=== PATIENT | male | born 1945 | race Caucasian/White ===

== ENCOUNTER 2017-12-26 00:10 | Observation (INO) ==
[2017-12-26] MEDS ORDERED: Sennosides/Docusate Sodium TABLET PO PRN (03:56)
[2017-12-26] MEDS ORDERED: traMADol 50 MG TABLET PO PRN (03:56)
--- NOTE | 2017-12-26 04:07 | Internal Med History&Physical ---
Date of Encounter: 12/26/17 Time of Encounter: 04:07 Internal Medicine - H&P: HPI Chief complaint: right arm tingling Admitted From: Home Plans for Post Hospital Care: Home History of present illness: Mr. Quinonez is a 72 year old man with a history of throat cancer s/p radical leck neck dissection in the 80s, CVA with left hemiplegia and right carotid artery stenosis s/p stenting, HTN, HLD who was admitted here 1 month ago on transfer from the [place] due to ventricular tachycardia. At the time he complained of dizziness that had been progressing over the preceding 2 months and he was found to have multiple runs of nonsustained V. tach and was started on amiodarone infusion as well as beta blockade. He was evaluated by cardiology with the recommendation of supplementing electrolytes adequately, continuing beta blockade and stopping amiodarone; a TTE was checked and a left heart catheter performed with 60% LAD stenosis and the rest of the vessels were free of obstructive disease. He presents now from [facility] emergency room where he presented with a complaint of right arm numbness that started 2 hours prior without associated chest pain, dyspnea, nausea, vomiting or diaphoresis. EKG initially showed bigeminy and subsequently he went into a period of nonsustained V. tach that occurred on multiple occasions. He remained clinically and hemodynamically stable and this time and is transferred here for further observation. My assessment the patient reports feeling well and has no complaints at this time stating that his right arm numbness menstrual while he was at rest and not related to exertion and is the first time this happens to him but has subsided without intervention. He denies any chest pain or shortness of breath at this time. He reports adherence to his medications. Past Med Surg Social Fam HX - Past Medical History Medical history: cancer, CVA, GERD, hyperlipidemia, hypertension, peripheral artery disease Additional medical history: L foot drop, diabetic neuropathy, luke's esophagus, dysphagia, erectile dysfunction, carcinoma of head/neck, carotid stenosis, gout Psychiatric history: no psych history - Past Surgical History Surgical History: vascular surgery Additional surgical history: radial neck sx for throat ca, R ankle - Social History Smoking Status: Former smoker Smokeless Tobacco Status: No Alcohol use: rarely Drug use: none - Family History Mother History Unknown: Yes Hx Family Endocrine Disorder: Yes (DM) Father History Unknown: Yes Hx Family Endocrine Disorder: Yes (Renal Failure) Internal Medicine - H&P: Meds Allopurinol [Zyloprim 100 MG] 100 mg PO DAILY 11/10/17 [History] Amlodipine Besylate 10 mg PO DAILY 11/10/17 [History] Aspirin [Lo-Dose Aspirin EC] 81 mg PO DAILY 11/10/17 [History] Atorvastatin [Lipitor] 40 mg PO HS 11/10/17 [History] Baclofen 40 mg PO TID PRN 11/10/17 [History] Benzonatate [Tessalon] 100 mg PO TID 11/10/17 [History] Clopidogrel [Plavix] 75 mg PO DAILY 11/10/17 [History] Lisinopril [Zestril] 40 mg PO DAILY 11/10/17 [History] Meclizine [Antivert] 12.5 mg PO BID PRN 11/10/17 [History] Metformin HCl 500 mg PO BID 11/10/17 [History] Multivit-Min/FA/Lycopen/Lutein [A Thru Z Select Multivit Tab] 1 tab PO DAILY [History] [place]-3/Dha/Epa/Fish Oil [Fish Oil 1,000 mg Softgel] 2 cap PO BID 11/10/17 [ History] Pantoprazole Sodium [Protonix] 20 mg PO DAILY 11/10/17 [History] Sennosides/Docusate Sodium [Colace 2-in-1 Tablet] 2 tab PO QID PRN 11/10/17 [ History] Sertraline [Zoloft] 100 mg PO DAILY 11/10/17 [History] Tamsulosin [Flomax] 0.4 mg PO DAILY 11/10/17 [History] Tramadol HCl [Ultram] 50 mg PO HS PRN 11/10/17 [History] Metoprolol XL (24 HR) Succ [Toprol Xl] 25 mg PO DAILY 30 Days #30 tab.er.24h [Rx] 3 Allergy/AdvReac Type Severity Reaction Status Date / Time No Known Allergies Allergy Verified 11/10/17 17:33 All Systems PM: A 10-system review of systems was performed and is negative for pertinent findings except as documented above in the HPI. - Constitutional Vitals: Temp Pulse Resp BP Pulse Ox 98.0 F 69 18 167/82 100 12/26/17 03:21 12/26/17 03:21 12/26/17 03:21 12/26/17 03:21 12/26/17 03:21 Exam: Vitals: Reviewed General: Well-appearing and not in acute distress Skin: Surgical incision site from neck dissection noted and well-healed. HEENT: Moist mucous membranes. No conjunctivae pallor. Neck: Excavated left neck area from surgery. Chest: Normal thoracic expansion. Normal breath sounds. Clear to auscultation. Heart: Normal s1/s2 Abdomen: Non-distended, soft and non-tender to palpation. Extremities: No clubbing, cyanosis or edema. Neurological: Awake, alert and oriented to person, place and time. Right hemiplegia. Psych: Affect appropriate. - Assessment and plan (1) Nonsustained ventricular tachycardia Current Visit: Yes Status: Acute Assessment and plan: Unclear etiology; could be related to ischemia or some ectopic focus of irregularity. I will continue metoprolol. For now since arrival no evidence of V. tach and clinically/hemodynamically stable and therefore will not start amiodarone however we will reconsult cardiology for evaluation of further management options. (2) Carotid stenosis, right Current Visit: Yes Status: Acute Assessment and plan: Currently asymptomatic. Continue dual antiplatelet therapy. (3) DVT prophylaxis Current Visit: Yes Status: Acute Assessment and plan: Subcutaneous heparin ordered. (4) HLD (hyperlipidemia) Current Visit: Yes Status: Chronic Assessment and plan: We will continue high dose statin therapy for ASCVD Qualifiers: Hyperlipidemia type: unspecified Qualified Code(s): E78.5 - Hyperlipidemia , unspecified (5) HTN (hypertension) Current Visit: Yes Status: Chronic Assessment and plan: Continue home antihypertensive therapy. Qualifiers: Hypertension type: essential hypertension Qualified Code(s): I10 - Essential (primary) hypertension (6) History of CVA (cerebrovascular accident) Current Visit: Yes Status: Chronic Assessment and plan: Stable and on antiplatelet/statin therapy. (7) History of throat cancer Current Visit: Yes Status: Resolved Assessment and plan: Resected in 1982 and no evidence of recurrence since then; was related to smoking history which he has now quit. - Time Spent With Patient Total time spent is greater than 50% in coordination of care (as documented) at patient's floor/unit and/or counseling patient: Greater than 35 minutes
[2017-12-26 05:21] LABS: Basophils % 0.5 %; Eosinophils # 0.2 K/mcL (0.0-0.6); Eosinophils % 3.3 %; Hematocrit 37.8 % (37.5-50.1); Hemoglobin 12.9 g/dL (12.9-16.9); Immature Granulocytes % 0.5 % (0-4); Lymphocytes % 14.7 %; Mean Corpuscular HGB Conc 34.1 g/dL (31.6-35.5); Mean Corpuscular Hemoglobin 28.6 pg (28.0-33.3); Mean Corpuscular Volume 83.8 fL (83.0-100.0); Mean Platelet Volume 9.9 fL (9.4-12.4); Monocytes # 0.4 K/mcL (0.0-1.3); Monocytes % 6.2 %; Platelet Count 154 K/mcL (140-400); Red Blood Count 4.51 M/mcL (4.19-5.50); Red Cell Distribution Width 14.2 % (11.5-14.5); Segmented Neutrophils % 74.8 %
[2017-12-26 05:43] LABS: Alanine Aminotransferase 14 Units/L (7-52); Albumin 4.1 g/dL (3.5-5.7); Albumin/Globulin Ratio 1.5 (1.1-2.2); Alkaline Phosphatase 48 Units/L (34-104); Aspartate Amino Transferase 13 Units/L (13-39); BUN/Creatinine Ratio 28 (6-26); Bilirubin,Direct 0.1 mg/dL (0.0-0.2); Bilirubin,Indirect 0.7 mg/dL (0.0-1.2); Bilirubin,Total 0.8 mg/dL (0.3-1.0); Blood Urea Nitrogen 18 mg/dL (8-23); Calcium 9.6 mg/dL (8.6-10.3); Carbon Dioxide 27 mEq/L (23-29); Chloride 101 mEq/L (98-107); Globulin 2.7 g/dL (2.4-3.5); Glucose 161 mg/dL (70-105); Magnesium 1.7 mg/dL (1.6-2.6); Osmolality,Calculated 289 (280-300); Potassium 3.9 mEq/L (3.5-5.1); Sodium 137 mEq/L (136-145); Total Protein 6.8 g/dL (6.4-8.9); eGFR For Non-African Americans > 60 (> 60)
[2017-12-26 05:56] LABS: Thyroid Stimulating Hormone 2.279 mcIU/mL (0.340-5.600)
[2017-12-26] MEDS ORDERED: Metoprolol XL (24 HR) Succ 25 MG TAB.ER.24H PO SCH (09:00)
[2017-12-26] MEDS: Lisinopril 20 MG TABLET PO SCH (09:14)
[2017-12-26] MEDS: Aspirin Enteric Coated 81 MG Tablet PO SCH (09:14)
[2017-12-26] MEDS: amLODIPine 5 MG TABLET PO SCH (09:14)
[2017-12-26] MEDS: *HR* Heparin 5,000 UNIT/ML VIAL SQ SCH ×3 (09:15→20:54)
--- NOTE | 2017-12-26 11:15 | Cardiology Consult Note ---
Date of Encounter: 12/26/17 Time of Encounter: 11:13 Assessment and Plan (1) CAD in [place] artery Current Visit: Yes Status: Acute [place] CAD, moderate LAD stenosis. Recommend continue aspirin, statin, and beta andres therapy. Also on Plavix, which was presumably started for history of carotid stenting. No changes made to medical therapy today. (2) Nonsustained ventricular tachycardia Current Visit: Yes Status: Acute History of nonsustained ventricular tachycardia per previous records. Patient transferred for concern regarding ventricular bigeminy. Since admission, isolated PVCs noted. No VT observed. Recent LHC performed, which demonstrated nonobstructive CAD. LV EF is preserved. Recommend continue telemetry. Maintain magnesium greater than 2, potassium greater than 4. Continue beta andres therapy. Will increase to twice daily. We will reevaluate in a.m. Discussion w patient/family: The assessment and plan as outlined above was discussed with the patient and/or family members who expressed understanding and agreement. All questions were answered. Thank you for involving us in the care of your patient. Please call with any questions. History of Present Illness Consult date: 12/26/17 Requesting physician: Shilpa Tapia Consult reason: PAF Chief complaint: Right arm numbness History of present illness: Mr. Quinonez is a 72 year old male with a history of head and neck cancer status post radical left neck dissection in the 80s, CVA with left hemiparesis due to right carotid artery stenosis status post stenting, hypertension, and hyperlipidemia. Previously evaluated regarding arrhythmias, specifically VT. Last admission, LHC performed, which demonstrated moderate CAD and medical therapy was recommended. Amiodarone previously stopped and beta andres continued. Yesterday, went outside ER with concerns regarding right-sided arm numbness. Today, consultation requested regarding abnormal ECG, which reportedly demonstrated ventricular bigeminy. ECG could not be found on floor. Patient in sinus rhythm during my evaluation. He denied chest pain or discomfort, but apparently reported chest discomfort prior to his ER visit yesterday. Previous testing: TTE 11/11/2017: LVEF 60%. Normal RV size and function. Mild diastolic dysfunction. Mild MR. No pulmonary hypertension LHC 11/10/2017: Left main normal. LAD mid 60% stenosis, FFR 0.85 and 0.87. Circumflex, OM1, L PDA normal. RCA normal. Past Med Surg Social Fam HX - Past Medical History Medical history: cancer, CVA, GERD, hyperlipidemia, hypertension, peripheral artery disease Additional medical history: L foot drop, diabetic neuropathy, luke's esophagus, dysphagia, erectile dysfunction, carcinoma of head/neck, carotid stenosis, gout Psychiatric history: no psych history - Past Surgical History Surgical History: vascular surgery Additional surgical history: radial neck sx for throat ca, R ankle - Social History Smoking Status: Former smoker Smokeless Tobacco Status: No Alcohol use: rarely Drug use: none - Family History Mother History Unknown: Yes Hx Family Endocrine Disorder: Yes (DM) Father History Unknown: Yes Hx Family Endocrine Disorder: Yes (Renal Failure) Medications and Allergies Allopurinol [Zyloprim 100 MG] 100 mg PO DAILY 11/10/17 [History] Amlodipine Besylate 10 mg PO DAILY 11/10/17 [History] Aspirin [Lo-Dose Aspirin EC] 81 mg PO DAILY 11/10/17 [History] Atorvastatin [Lipitor] 40 mg PO HS 11/10/17 [History] Baclofen 40 mg PO TID PRN 11/10/17 [History] Benzonatate [Tessalon] 100 mg PO TID 11/10/17 [History] Clopidogrel [Plavix] 75 mg PO DAILY 11/10/17 [History] Lisinopril [Zestril] 40 mg PO DAILY 11/10/17 [History] Meclizine [Antivert] 12.5 mg PO BID PRN 11/10/17 [History] Metformin HCl 500 mg PO BID 11/10/17 [History] Multivit-Min/FA/Lycopen/Lutein [A Thru Z Select Multivit Tab] 1 tab PO DAILY [History] [place]-3/Dha/Epa/Fish Oil [Fish Oil 1,000 mg Softgel] 2 cap PO BID 11/10/17 [ History] Pantoprazole Sodium [Protonix] 20 mg PO DAILY 11/10/17 [History] Sennosides/Docusate Sodium [Colace 2-in-1 Tablet] 2 tab PO QID PRN 11/10/17 [ History] Sertraline [Zoloft] 100 mg PO DAILY 11/10/17 [History] Tamsulosin [Flomax] 0.4 mg PO DAILY 11/10/17 [History] Tramadol HCl [Ultram] 50 mg PO HS PRN 11/10/17 [History] Metoprolol XL (24 HR) Succ [Toprol Xl] 25 mg PO DAILY 30 Days #30 tab.er.24h [Rx] 3 Allergy/AdvReac Type Severity Reaction Status Date / Time No Known Allergies Allergy Verified 11/10/17 17:33 All Systems Review: The remainder of the systems were reviewed and are negative - Cardiovascular Cardiovascular: as per HPI Physical Examination General: Conversant, No Apparent Distress HEENT: Atraumatic, Normocephaly, Mucus Membranes Moist Neck: No JVD, Normal carotid pulses Cardiac: Other (Regular. No auscultated murmurs gallops or rubs.) Lungs: Normal Breath Sounds, No Wheeze, Rales, Rhonchi Neuro: Alert and responsive, Other (Left-sided hemiparesis noted.) Abdomen: Soft Skin: No rashes noted on visualized skin Musculoskeletal: No Chest Wall Tenderness Extremities: No Clubbing, No Cyanosis, No Edema Results 12/26/17 04:40 12/26/17 04:40 Lab Results 12/26/17 12/26/17 12/26/17 04:40 04:40 04:40 WBC 6.6 Hgb 12.9 Hct 37.8 Plt Count 154 Sodium 137 Potassium 3.9 Chloride 101 Carbon Dioxide 27 BUN 18 Creatinine 0.64 L Glucose 161 H Calcium 9.6 Magnesium 1.7 Total Bilirubin 0.8 AST 13 ALT 14 Alkaline Phosphatase 48 Troponin I < 0.03 TSH 2.279 - Imaging and Cardiology Echo: report reviewed Cardiac cath: report reviewed Consult Discharge Plan - Plan [facility]errals: [facility] [[facility] Care Provider[facility] - Opal Benavides [Family Provider] -
[2017-12-26] MEDS: Baclofen 10 MG TABLET PO PRN (14:17)
--- NOTE | 2017-12-26 15:12 | Event Note ---
Date of Encounter: 12/26/17 Time of Encounter: 15:10 Mr. Quinonez is a 72 year old man with a history of throat cancer s/p radical leck neck dissection in the 80s, CVA with left hemiplegia and right carotid artery stenosis s/p stenting, HTN, HLD who was admitted here 1 month ago on transfer from the [place] due to ventricular tachycardia. At the time he complained of dizziness that had been progressing over the preceding 2 months and he was found to have multiple runs of nonsustained V. tach and was started on amiodarone infusion as well as beta blockade. He was evaluated by cardiology with the recommendation of supplementing electrolytes adequately, continuing beta blockade and stopping amiodarone; a TTE was checked and a left heart catheter performed with 60% LAD stenosis and the rest of the vessels were free of obstructive disease. He presents now from [facility] emergency room where he presented with a complaint of right arm numbness that started 2 hours prior without associated chest pain, dyspnea, nausea, vomiting or diaphoresis. EKG initially showed bigeminy and subsequently he went into a period of nonsustained V. tach that occurred on multiple occasions. He remained clinically and hemodynamically stable and this time and is transferred here for further observation. My assessment the patient reports feeling well and has no complaints at this time stating that his right arm numbness menstrual while he was at rest and not related to exertion and is the first time this happens to him but has subsided without intervention. He denies any chest pain or shortness of breath at this time. He reports adherence to his medications patient was admitted for NSVT and chest pain, but patient denies chest pain, he said he never had chset pain. Riht arm numbness is gone, denies papitation. Appreciate cardiology help increased BB dose continue ASA, statin BB plavix
[2017-12-26] MEDS: Metoprolol XL (24 HR) Succ 25 MG TAB.ER.24H PO SCH (20:54)
[2017-12-27 04:28] LABS: BUN/Creatinine Ratio 29 (6-26); Blood Urea Nitrogen 18 mg/dL (8-23); Calcium 9.5 mg/dL (8.6-10.3); Carbon Dioxide 28 mEq/L (23-29); Chloride 101 mEq/L (98-107); Glucose 128 mg/dL (70-105); Osmolality,Calculated 288 (280-300); Potassium 4.1 mEq/L (3.5-5.1); Sodium 137 mEq/L (136-145); eGFR For Non-African Americans > 60 (> 60)
[2017-12-27] MEDS: *HR* Heparin 5,000 UNIT/ML VIAL SQ SCH (05:27)
[2017-12-27 06:51] VITALS: BP 135/75
[2017-12-27] MEDS: Baclofen 10 MG TABLET PO PRN (09:57)
[2017-12-27] MEDS: Metoprolol XL (24 HR) Succ 25 MG TAB.ER.24H PO SCH (09:57)
[2017-12-27] MEDS: Lisinopril 20 MG TABLET PO SCH (09:58)
[2017-12-27] MEDS: amLODIPine 5 MG TABLET PO SCH (09:58)
[2017-12-27] MEDS: Aspirin Enteric Coated 81 MG Tablet PO SCH (09:59)
--- NOTE | 2017-12-27 10:55 | Cardiology Progress Note ---
Date of Encounter: 12/27/17 Time of Encounter: 10:53 Assessment and Plan (1) CAD in [place] artery Current Visit: Yes Status: Acute [place] CAD, moderate LAD stenosis. Recommend continue aspirin, statin, and beta andres therapy. Also on Plavix, which was presumably started for history of carotid stenting. No changes made to medical therapy today. (2) Nonsustained ventricular tachycardia Current Visit: Yes Status: Acute History of nonsustained ventricular tachycardia per previous records. Patient transferred for concern regarding ventricular bigeminy. Infrequent PVCs noted since admission. No indication for further testing at this time. Recommend continue current medical therapy, including low-dose beta andres twice daily. 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 Cardiology will sign off. Please call with any questions or concerns. Discussion w patient/family: The assessment and plan as outlined above was discussed with the patient and/or family members who expressed understanding and agreement. All questions were answered. Thank you for involving us in the care of your patient. Please call with any questions. Subjective Principal diagnosis: Right arm weakness Interval history: Overall, patient reports he is feeling better. No further right arm weakness. No palpitations reported. Telemetry reviewed, occasional PVCs noted. No sustained arrhythmias. Objective General: Conversant, No Apparent Distress HEENT: Atraumatic, Normocephaly, Mucus Membranes Moist Neck: No JVD, Normal carotid pulses Cardiac: Reg Rate and Rhythm, Normal S1 and S2, No Murmur Lungs: Normal Breath Sounds, No Wheeze, Rales, Rhonchi Neuro: Alert and responsive, Other (Left-sided paralysis noted) Abdomen: Soft, Non-Tender Skin: No rashes noted on visualized skin Musculoskeletal: No Chest Wall Tenderness Extremities: No Clubbing, No Cyanosis, No Edema Results 12/26/17 04:40 12/27/17 03:19 Lab Results 12/27/17 03:19 Sodium 137 Potassium 4.1 Chloride 101 Carbon Dioxide 28 BUN 18 Creatinine 0.62 L Glucose 128 H Calcium 9.5 Magnesium 2.0 - Imaging and Cardiology Echo: report reviewed Cardiac cath: report reviewed Consult Discharge Plan - Plan Referrals: [place],PCP [Primary Care Provider] - Opal Benavides [Family Provider] -
--- NOTE | 2017-12-27 11:25 | Discharge Summary ---
Orders not resulted at time of discharge: Pending orders 12/26/17 03:25 EKG [ECG 12 lead ECG] [ECG] Routine 12/27/17 06:00 ECG 12 lead ECG [ECG] AM 0600 Date of Encounter: 12/27/17 Time of Encounter: 11:18 - Discharge Diagnosis (1) Nonsustained ventricular tachycardia Priority: Primary Status: Resolved (2) History of CVA (cerebrovascular accident) Priority: Secondary Status: Chronic (3) DVT prophylaxis Priority: Primary Status: Acute (4) History of throat cancer Priority: Secondary Status: Resolved (5) HTN (hypertension) Priority: Secondary Status: Chronic Qualifiers: Hypertension type: essential hypertension Qualified Code(s): I10 - Essential (primary) hypertension (6) HLD (hyperlipidemia) Priority: Secondary Status: Chronic Qualifiers: Hyperlipidemia type: unspecified Qualified Code(s): E78.5 - Hyperlipidemia , unspecified (7) Diabetes mellitus type 2 in nonobese Priority: Secondary Status: Chronic (8) Carotid stenosis, right Priority: Secondary Status: Chronic (9) CAD in [place] artery Priority: Secondary Status: Chronic Hospital course: Mr. Quinonez is a 72 year old male Mr. Quinonez is a 72 year old man with a history of throat cancer s/p radical leck neck dissection in the 80s, CVA with left hemiplegia and right carotid artery stenosis s/p stenting, HTN, HLD who was admitted here 1 month ago on transfer from the [place] due to ventricular tachycardia. At the time he complained of dizziness that had been progressing over the preceding 2 months and he was found to have multiple runs of nonsustained V. tach and was started on amiodarone infusion as well as beta blockade. He was evaluated by cardiology with the recommendation of supplementing electrolytes adequately, continuing beta blockade and stopping amiodarone; a TTE was checked and a left heart catheter performed with 60% LAD stenosis and the rest of the vessels were free of obstructive disease. He presents now from [facility] emergency room where he presented with a complaint of right arm numbness that started 2 hours prior without associated chest pain, dyspnea, nausea, vomiting or diaphoresis. EKG initially showed bigeminy and subsequently he went into a period of nonsustained V. tach that occurred on multiple occasions. He remained clinically and hemodynamically stable and this time and is transferred here for further observation. My assessment the patient reports feeling well and has no complaints at this time stating that his right arm numbness while he was at rest and not related to exertion and is the first time this happens to him but has subsided without intervention, lasted for 2 min. He denies any chest pain or shortness of breath at this time. He reports adherence to his medications patient was admitted for NSVT and chest pain, but patient denies chest pain, he said he never had chset pain. Right arm numbness is gone, denies papitation. Appreciate cardiology help increased BB dose. Cardiology is ok to discharge on metoprolol 25 mg XL BID, HR is well controlled. no recurrent NSVT. Patient had transient right arm numbness, lasted for 2 min, no recurrent episodes, he has hx of stroke, carotid stent, he follows up with [facility] vascular surgery, was told stent patent in 07/2017, he is already on ASA, Plavix. further work up wounld not change the management. Patient is instructed to follow up PCP. continue ASA, statin BB plavix Discharge discussed with: patient Time spent discussing smoking cessation with patient: 3 to 10 minutes - Time Spent with Patient Total time spent providing and/or coordinating discharge services: Less than 30 minutes - Discharge Medications Prescriptions: Metoprolol XL (24 HR) Succ [Toprol Xl] 25 mg PO BID 30 Days #60 tab.er.24h Home Medications: Allopurinol [Zyloprim 100 MG] 100 mg PO DAILY 11/10/17 [History] Aspirin [Lo-Dose Aspirin EC] 81 mg PO DAILY 11/10/17 [History] Atorvastatin [Lipitor] 40 mg PO HS 11/10/17 [History] Baclofen 40 mg PO TID PRN 11/10/17 [History] Benzonatate [Tessalon] 100 mg PO TID 11/10/17 [History] Clopidogrel [Plavix] 75 mg PO DAILY 11/10/17 [History] Meclizine [Antivert] 12.5 mg PO BID PRN 11/10/17 [History] Multivit-Min/FA/Lycopen/Lutein [A Thru Z Select Multivit Tab] 1 tab PO DAILY [History] [place]-3/Dha/Epa/Fish Oil [Fish Oil 1,000 mg Softgel] 2 cap PO BID 11/10/17 [ History] Sennosides/Docusate Sodium [Colace 2-in-1 Tablet] 2 tab PO QID PRN 11/10/17 [ History] Sertraline [Zoloft] 100 mg PO DAILY 11/10/17 [History] Tamsulosin [Flomax] 0.4 mg PO HS 11/10/17 [History] Tramadol HCl [Ultram] 50 mg PO HS PRN 11/10/17 [History] Acetaminophen [Tylenol] 650 mg PO Q6HR PRN 12/26/17 [History] Finasteride [Proscar] 5 mg PO DAILY 12/26/17 [History] Ketoconazole Shampoo [Nizoral Shampoo] 1 appl TP DAILY PRN 12/26/17 [History] Lactose-Reduced Food [Ensure Liquid] 1 bottle PO DAILY 12/26/17 [History] Lisinopril [Zestril] 10 mg PO DAILY 12/26/17 [History] Metformin HCl [Glucophage] 500 mg PO BID 12/26/17 [History] Pantoprazole Sodium [Protonix] 40 mg PO DAILY 12/26/17 [History] Metoprolol XL (24 HR) Succ [Toprol Xl] 25 mg PO BID 30 Days #60 tab.er.24h 12/27 [Rx] Allergies/Adverse Reactions: 3 Allergy/AdvReac Type Severity Reaction Status Date / Time No Known Allergies Allergy Verified 12/26/17 14:06 Date of admission: 12/26/17 02:33 Primary care physician: PCP [place] Consults: 12/26/17 04:02 Consult to Cardiology [CONS] Routine Comment: Consulting Provider: Cardiology Madeline Reason for Consult: Patient known to cardiology. HEre 1 month ago with NSVT and underwent LHC. Amiodarone was stopped and beta andres continued. Comes in now right right arm paresthesias and NSVT episodes. Call Completed: No Anticipated date of discharge: 12/27/17 - Constitutional Vitals: Temp Pulse Resp BP Pulse Ox 98.4 F 61 15 135/75 97 12/27/17 06:51 12/27/17 06:51 12/27/17 06:51 12/27/17 06:51 12/27/17 06:51 Exam: Vitals: Reviewed General: Well-appearing and not in acute distress Skin: Surgical incision site from neck dissection noted and well-healed. HEENT: Moist mucous membranes. No conjunctivae pallor. Neck: Excavated left neck area from surgery. Chest: Normal thoracic expansion. Normal breath sounds. Clear to auscultation. Heart: Normal s1/s2 Abdomen: Non-distended, soft and non-tender to palpation. Extremities: No clubbing, cyanosis or edema. Neurological: Awake, alert and oriented to person, place and time. left hemiplegia. Psych: Affect appropriate. - Patient Status Disposition: Home Health Service Condition: Good Overall status at discharge: patient is back to baseline - Discharge Instructions Follow Up With: [facility] [[facility] Care Provider[facility] - Opal Benavides [Family Provider] - - Diet and Activity Diet: advance to your usual diet
--- NOTE | 2017-12-27 11:45 | Physician Discharge Referral ---
Home Health/Hosp Referral Info Provider in Charge Post Discharge: PCP - Diagnosis (1) Nonsustained ventricular tachycardia Status: Resolved (2) History of CVA (cerebrovascular accident) Status: Chronic (3) DVT prophylaxis Status: Acute (4) History of throat cancer Status: Resolved (5) HTN (hypertension) Status: Chronic (6) HLD (hyperlipidemia) Status: Chronic (7) Diabetes mellitus type 2 in nonobese Status: Chronic (8) Carotid stenosis, right Status: Chronic (9) CAD in [place] artery Status: Chronic - Respiratory Orders Smoking Cessation: Smoking cessation has been advised. For more information, call the [place] Tobacco Quit Line at 1-768-CNQX-NOW. - Activity Activity Orders: Up ad mikel - Services Needed Following services are medically necessary services: Nursing, Home Health Aide - Transfer Medications Prescriptions: Metoprolol XL (24 HR) Succ [Toprol Xl] 25 mg PO BID 30 Days #60 tab.er.24h Home Medications: Allopurinol [Zyloprim 100 MG] 100 mg PO DAILY 11/10/17 [History] Aspirin [Lo-Dose Aspirin EC] 81 mg PO DAILY 11/10/17 [History] Atorvastatin [Lipitor] 40 mg PO HS 11/10/17 [History] Baclofen 40 mg PO TID PRN 11/10/17 [History] Benzonatate [Tessalon] 100 mg PO TID 11/10/17 [History] Clopidogrel [Plavix] 75 mg PO DAILY 11/10/17 [History] Meclizine [Antivert] 12.5 mg PO BID PRN 11/10/17 [History] Multivit-Min/FA/Lycopen/Lutein [A Thru Z Select Multivit Tab] 1 tab PO DAILY [History] [place]-3/Dha/Epa/Fish Oil [Fish Oil 1,000 mg Softgel] 2 cap PO BID 11/10/17 [ History] Sennosides/Docusate Sodium [Colace 2-in-1 Tablet] 2 tab PO QID PRN 11/10/17 [ History] Sertraline [Zoloft] 100 mg PO DAILY 11/10/17 [History] Tamsulosin [Flomax] 0.4 mg PO HS 11/10/17 [History] Tramadol HCl [Ultram] 50 mg PO HS PRN 11/10/17 [History] Acetaminophen [Tylenol] 650 mg PO Q6HR PRN 12/26/17 [History] Finasteride [Proscar] 5 mg PO DAILY 12/26/17 [History] Ketoconazole Shampoo [Nizoral Shampoo] 1 appl TP DAILY PRN 12/26/17 [History] Lactose-Reduced Food [Ensure Liquid] 1 bottle PO DAILY 12/26/17 [History] Lisinopril [Zestril] 10 mg PO DAILY 12/26/17 [History] Metformin HCl [Glucophage] 500 mg PO BID 12/26/17 [History] Pantoprazole Sodium [Protonix] 40 mg PO DAILY 12/26/17 [History] Metoprolol XL (24 HR) Succ [Toprol Xl] 25 mg PO BID 30 Days #60 tab.er.24h 12/27 [Rx] Allergies/Adverse Reactions: 3 Allergy/AdvReac Type Severity Reaction Status Date / Time No Known Allergies Allergy Verified 12/26/17 14:06 Certification: Further, I certify that my clinical findings support that this patient is homebound (i.e. absences from home require considerable and taxing effort and are for medical reasons or cheondoism services or infrequently or short duration when for other reasons) because: Homebound Reason: Patient requires assistance of a person or device to safely leave home Attestation: My signature below is to certify that this patient is under my care and that I, or nurse practitioner, or a physician's front desk assistant working with me, has a face-to -face encounter with this patient.
--- NOTE | 2017-12-29 21:24 | Electrocardiograph Report ---
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
== END 2017-12-27 13:38 | disposition home health service (06) ==
LOC: 2NENU → SUATTDRO 02:33
PROVIDERS: ADMIT Internal Medicine; ATTEND Hospitalist

== ENCOUNTER 2018-09-30 16:08 | Observation (INO) ==
[2018-09-30] MEDS ORDERED: Ondansetron 4 MG/2 ML VIAL IVP PRN (19:54)
[2018-09-30] MEDS ORDERED: Acetaminophen 325 MG TABLET PO PRN (19:54)
[2018-09-30] MEDS ORDERED: Ringers Solution, Lactated 1,000 ML IVC SCH (20:00)
[2018-09-30] MEDS ORDERED: Famotidine 20 MG/2 ML VIAL IVP ONE (20:16)
--- NOTE | 2018-09-30 20:23 | Internal Med History&Physical ---
Date of Encounter: 09/30/18 Time of Encounter: 20:22 Internal Medicine - H&P: HPI Chief complaint: weakness Admitted From: Home Plans for Post Hospital Care: Home History of present illness: Hector Quinonez is a 73 year old man with a history of throat cancer s/p radical left neck dissection in the 80s, CVA with left hemiplegia, right carotid artery stenosis s/p stenting, HTN and HLD. He is transferred here from an outside with the concern of stroke-like symptoms. The transfer call was received by my predecessor. He tells me that yesterday he became queasy to his stomach and has felt nauseated with some vomiting episodes. He also had abdominal discomfort from ongoing constipation but then later had loose bowel movements. He says this morning his felt he was somewhat disoriented and weak appearing so took him to the hospital for evaluation. He denies any complaints however and feels well at this time. He says he has not eaten anything today and will like to try some food. He denies headache, chest pain, shortness of breath, dizziness and lightheadedness at this time. Vitals: Reviewed General: Well-appearing and not in acute distress Skin: Surgical incision site from neck dissection noted and well-healed. HEENT: Moist mucous membranes. No conjunctivae pallor. Neck: Excavated left neck area from surgery. Chest: Normal thoracic expansion. Normal breath sounds. Clear to auscultation. Heart: Normal s1/s2 Abdomen: Non-distended, soft and non-tender to palpation. Extremities: No clubbing, cyanosis or edema. Neurological: Awake, alert and oriented to person, place and time. Left hem iplegia with contracture. Right side with 5/5 strength. Psych: Affect appropriate. Assessment/Plan 1. Nausea: Non-specific. Will [provide anti-emetics as needed. 2. Diarrhea: After a long bout of constipation. Not been on antibiotics recently. Will monitor and assess it if it recurs. 3. Weakness: Suspect secondary to poor intake from her stomach upset. No clinical evidence of new stroke is present on my assessment. Will provide IVF for resuscitation. 4. Right carotid stenosis: Asymptomatic. Continue DAPT. 5. Hyperlipidemia: On statin therapy. 6. Hypertension: We will resume home antihypertensive therapy once confirmed. 7. CVA: Stable and on antiplatelet/statin therapy. 8. Throat cancer: Resected in 1982 and no evidence of recurrence since then. It was related to smoking history which she has not quit. Past Med Surg Social Fam HX - Past Medical History Medical history: cancer, CVA, GERD, hyperlipidemia, hypertension, peripheral artery disease Additional medical history: L foot drop, diabetic neuropathy, luke's esophagus, dysphagia, erectile dysfunction, carcinoma of head/neck, carotid stenosis, gout Psychiatric history: no psych history - Past Surgical History Surgical History: vascular surgery Additional surgical history: radial neck sx for throat ca, R ankle - Social History Smoking Status: Former smoker Smokeless Tobacco Status: No Alcohol use: rarely Drug use: none - Family History Mother Living Status: Age at : 75 Cause of : DM Hx Family Endocrine Disorder: Yes (DM) Father Living Status: Age at : 50 Cause of : kidney failure Hx Family Cardiac Disorders: Yes Hx Family Endocrine Disorder: Yes (Renal Failure) Internal Medicine - H&P: Meds Allopurinol [Zyloprim 100 MG] 100 mg PO DAILY 11/10/17 [History] Aspirin [Lo-Dose Aspirin EC] 81 mg PO DAILY 11/10/17 [History] Atorvastatin [Lipitor] 40 mg PO HS 11/10/17 [History] Baclofen 40 mg PO TID PRN 11/10/17 [History] Benzonatate [Tessalon] 100 mg PO TID 11/10/17 [History] Clopidogrel [Plavix] 75 mg PO DAILY 11/10/17 [History] Meclizine [Antivert] 12.5 mg PO BID PRN 11/10/17 [History] Multivit-Min/FA/Lycopen/Lutein [A Thru Z Select Multivit Tab] 1 tab PO DAILY 11/10/17 [History] [place]-3/Dha/Epa/Fish Oil [Fish Oil 1,000 mg Softgel] 2 cap PO BID 11/10/17 [History] Sennosides/Docusate Sodium [Colace 2-in-1 Tablet] 2 tab PO QID PRN 11/10/17 [History] Sertraline [Zoloft] 100 mg PO DAILY 11/10/17 [History] Tamsulosin [Flomax] 0.4 mg PO HS 11/10/17 [History] Tramadol HCl [Ultram] 50 mg PO HS PRN 11/10/17 [History] Acetaminophen [Tylenol] 650 mg PO Q6HR PRN 12/26/17 [History] Finasteride [Proscar] 5 mg PO DAILY 12/26/17 [History] Ketoconazole Shampoo [Nizoral Shampoo] 1 appl TP DAILY PRN 12/26/17 [History] Lactose-Reduced Food [Ensure Liquid] 1 bottle PO DAILY 12/26/17 [History] Lisinopril [Zestril] 10 mg PO DAILY 12/26/17 [History] Metformin HCl [Glucophage] 500 mg PO BID 12/26/17 [History] Pantoprazole Sodium [Protonix] 40 mg PO DAILY 12/26/17 [History] Metoprolol XL (24 HR) Succ [Toprol Xl] 25 mg PO BID 30 Days #60 tab.er.24h 12/27 [Rx] Allergy/AdvReac Type Severity Reaction Status Date / Time No Known Allergies Allergy Verified 12/26/17 14:06 All Systems PM: A 10-system review of systems was performed and is negative for pertinent findings except as documented above in the HPI. - Constitutional Vitals: Temp Pulse Resp BP Pulse Ox 98.4 F 66 16 187/90 96 09/30/18 19:05 09/30/18 19:05 09/30/18 19:05 09/30/18 19:05 09/30/18 19:05 Exam: . - Time Spent With Patient Total time spent is greater than 50% in coordination of care (as documented) at patient's floor/unit and/or counseling patient: Greater than 35 minutes
[2018-09-30] MEDS ORDERED: traMADol 50 MG TABLET PO PRN (22:03)
[2018-10-01 03:26] LABS: Basophils # 0.1 K/mcL (0.0-0.2); Basophils % 0.7 %; Eosinophils # 0.3 K/mcL (0.0-0.6); Eosinophils % 4.5 %; Hematocrit 36.5 % (37.5-50.1); Hemoglobin 12.4 g/dL (12.9-16.9); INR 1.1; Immature Granulocytes % 0.3 % (0-4); Lymphocytes # 1.5 K/mcL (0.6-4.6); Mean Corpuscular Hemoglobin 29.2 pg (28.0-33.3); Mean Corpuscular Volume 85.9 fL (83.0-100.0); Mean Platelet Volume 9.5 fL (9.4-12.4); Monocytes # 0.6 K/mcL (0.0-1.3); Monocytes % 8.7 %; Neutrophils # 4.5 K/mcL (1.6-8.9); Platelet Count 158 K/mcL (140-400); Red Blood Count 4.25 M/mcL (4.19-5.50); Red Cell Distribution Width 13.6 % (11.5-14.5); Segmented Neutrophils % 64.8 %; White Blood Count 6.9 K/mcL (4.3-11.1)
[2018-10-01 03:29] LABS: Activated Partial Thrombo Time 34.5 Seconds (26.0-36.0)
[2018-10-01 03:38] LABS: Alanine Aminotransferase 8 Units/L (7-52); Albumin 4.1 g/dL (3.5-5.7); Albumin/Globulin Ratio 1.6 (1.1-2.2); Alkaline Phosphatase 44 Units/L (34-104); Aspartate Amino Transferase 12 Units/L (13-39); BUN/Creatinine Ratio 28 (6-26); Bilirubin,Direct 0.2 mg/dL (0.0-0.2); Bilirubin,Indirect 0.7 mg/dL (0.0-1.2); Bilirubin,Total 0.9 mg/dL (0.3-1.0); Blood Urea Nitrogen 17 mg/dL (8-23); Calcium 9.1 mg/dL (8.6-10.3); Carbon Dioxide 26 mEq/L (23-29); Chloride 102 mEq/L (98-107); Globulin 2.6 g/dL (2.4-3.5); Glucose 97 mg/dL (70-105); Osmolality,Calculated 283 (280-300); Potassium 3.8 mEq/L (3.5-5.1); Sodium 136 mEq/L (136-145); Total Protein 6.7 g/dL (6.4-8.9); eGFR For African Americans > 60 (> 60); eGFR For Non-African Americans > 60 (> 60)
[2018-10-01] MEDS: *HR* Heparin 5,000 UNIT/ML VIAL SQ SCH ×2 (05:02→16:57)
[2018-10-01] MEDS: Artificial Tears SOLN 15 ML BOTTLE BOTH EYES SCH ×4 (07:16→20:37)
[2018-10-01] MEDS: Multivit/Ca/Min/Fe/FA 1 TAB TABLET PO SCH (07:16)
[2018-10-01] MEDS: Lisinopril 20 MG TABLET PO SCH (07:17)
[2018-10-01] MEDS: Metoprolol XL (24 HR) Succ 25 MG TAB.ER.24H PO SCH (07:18)
[2018-10-01] MEDS: Cyanocobalamin (B-12) 1,000 MCG TABLET PO SCH (07:18)
[2018-10-01] MEDS: Fluticasone Propionate Nasal 50 MCG/SPRAY BOTTLE NS SCH (07:18)
[2018-10-01] MEDS: Benzonatate 100 MG CAPSULE PO SCH ×3 (07:18→20:36)
[2018-10-01] MEDS: Aspirin Enteric Coated 81 MG Tablet PO SCH (07:18)
[2018-10-01] MEDS ORDERED: (Fish Oil 1,000 Mg Softgel) PO SCH (09:00)
[2018-10-01] MEDS: Baclofen 10 MG TABLET PO PRN (17:08)
--- NOTE | 2018-10-01 17:51 | Electrocardiograph Report ---
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
[2018-10-01] MEDS: Perflutren Lipid Microsphere 1.3 ML in 0.9 % Sodium Chloride 8.7 ML IVP ONE ×2 (19:20→20:48)
--- NOTE | 2018-10-01 19:38 | Internal Med Progress Note ---
Hospitalist Progress Note - Encounter Date of Encounter: 10/01/18 Time of Encounter: 11:00 - Subjective Interval History: Patient was seen and examined at bedside-states he feels much better not as weak as he was previously no vomiting this morning. Patient has history of nonsustained V. tach and states that whenever he changes position as well as when he does not feel well and becomes nauseated and queasy. Review of telemetry with no arrhythmias noted overnight. We will continue to monitor and continue workup with echo and MRI to rule out CVA as well as orthostatic vital signs reviewed in treatment plan with patient and verbalized understanding. - Exam Vitals: Temp Pulse Resp BP Pulse Ox 97.6 F 65 14 163/100 95 10/01/18 15:31 10/01/18 15:31 10/01/18 15:31 10/01/18 15:31 10/01/18 15:31 Exam: Skin: Free of rash and discoloration. Eyes: Sclera is white. There is no discharge from eyes. ENMT: Oral/pharyngeal mucosa is normal in appearance. There is no discharge from nose or ears. Respiratory: Normal breath sounds with no crackles and wheezes bilaterally. CV: Heart is regular with no gallop or murmur. GI: Abdomen is flat and soft with no palpable mass or visceromegaly. : There is no tenderness in patient's flanks bilaterally. Neuro exam: Left-sided weakness right side normal strength 5/5 He has normal eye movements. Psychiatric: He has normal affect. His thought process is appropriate to the situation. - Assessment and Plan (1) Weakness Current Visit: Yes Status: Acute Assessment and Plan: Patient has been experiencing poor by mouth intake due to nausea and vomiting continue IV fluids-continues to feel weak no neurological deficits we will check MRI due to patient's past history of CVA also will check echo since he has been experiencing history of nonsustained V. tach continue cardiac monitoring Obtain orthostatic vital signs (2) Nausea & vomiting Current Visit: Yes Status: Acute Assessment and Plan: Patient has had multiple episodes of vomiting states mostly when he tries to sit up-denies any abdominal pain and abdomen is nontender states it has improved and has not had any episodes today. Continue with antiemetics (3) Diarrhea Current Visit: Yes Status: Acute Assessment and Plan: Suspect this is secondary to constipation and use of laxatives. He has not had anymore loose stools since admitted (4) DVT prophylaxis Current Visit: No Status: Acute Assessment and Plan: Heparin subcutaneous (5) CAD in [place] artery Current Visit: No Status: Chronic Assessment and Plan: Continue with DAPT and statin beta andres and jasvir-no chest pain this time (6) Carotid stenosis, right Current Visit: No Status: Chronic Assessment and Plan: Continue withASA Plavix and statin (7) Diabetes mellitus type 2 in nonobese Current Visit: No Status: Chronic Assessment and Plan: Accu-Cheks before meals at bedtime with sliding scale insulin (8) HLD (hyperlipidemia) Current Visit: No Status: Chronic Assessment and Plan: Continue statin (9) HTN (hypertension) Current Visit: No Status: Chronic Assessment and Plan: Continued home medications (10) History of CVA (cerebrovascular accident) Current Visit: No Status: Chronic Assessment and Plan: History of previous CVA with residual left-sided weakness he has been feeling weak original CT of head was negative we will obtain MRI as well as echocardiogram continuous cardiac monitoring (11) Nonsustained ventricular tachycardia Current Visit: No Status: Resolved Assessment and Plan: History of nonsustained V. tach monitor overnight without any episodes of arrhythmia no chest pain lab work is stable continue to monitor - Time Spent with Patient Total time spent is greater than 50% in coordination of care (as documented) at patient's floor/unit and/or counseling patient: Internal Medicine: Result - Labs CBC & Chem 7: 10/01/18 02:59 10/01/18 02:59 Labs: Short CBC 10/01/18 Range/Units 02:59 WBC 6.9 (4.3-11.1) K/mcL Hgb 12.4 L (12.9-16.9) g/dL Hct 36.5 L (37.5-50.1) % Plt Count 158 (140-400) K/mcL Neutrophils # 4.5 (1.6-8.9) K/mcL BMP 10/01/18 02:59 Sodium 136 Potassium 3.8 Chloride 102 Carbon Dioxide 26 BUN 17 Creatinine 0.60 L Glucose 97 Calcium 9.1 Liver Function 10/01/18 Range/Units 02:59 Total Bilirubin 0.9 (0.3-1.0) mg/dL Direct Bilirubin 0.2 (0.0-0.2) mg/dL AST 12 L (13-39) Units/L ALT 8 (7-52) Units/L Alkaline Phosphatase 44 (34-104) Units/L Albumin 4.1 (3.5-5.7) g/dL - ABG Interpretation ABG results: PT/INR, D-dimer PT 12.0 Seconds (9.4-12.1) 10/01/18 02:59 Consult Discharge Plan - Plan [facility]errals: [facility] [Primary Care Provider] - (2) Nausea & vomiting Qualifiers: Vomiting type: unspecified Vomiting Intractability: unspecified Qualified Code(s): R11.2 - Nausea with vomiting, unspecified (3) Diarrhea Qualifiers: Diarrhea type: unspecified type Qualified Code(s): R19.7 - Diarrhea, u nspecified (8) HLD (hyperlipidemia) Qualifiers: Hyperlipidemia type: unspecified Qualified Code(s): E78.5 - Hyperlipidemia, unspecified (9) HTN (hypertension) Qualifiers: Hypertension type: essential hypertension Qualified Code(s): I10 - Essential (primary) hypertension
[2018-10-02] MEDS: *HR* Heparin 5,000 UNIT/ML VIAL SQ SCH (06:05)
[2018-10-02] MEDS: Cyanocobalamin (B-12) 1,000 MCG TABLET PO SCH (09:33)
[2018-10-02] MEDS: Benzonatate 100 MG CAPSULE PO SCH ×2 (09:33→16:30)
[2018-10-02] MEDS: Multivit/Ca/Min/Fe/FA 1 TAB TABLET PO SCH (09:33)
[2018-10-02] MEDS: Lisinopril 20 MG TABLET PO SCH (09:33)
[2018-10-02] MEDS: Metoprolol XL (24 HR) Succ 25 MG TAB.ER.24H PO SCH (09:33)
[2018-10-02] MEDS: Aspirin Enteric Coated 81 MG Tablet PO SCH (09:33)
[2018-10-02 10:02] LABS: BUN/Creatinine Ratio 23 (6-26); Blood Urea Nitrogen 15 mg/dL (8-23); Calcium 9.4 mg/dL (8.6-10.3); Carbon Dioxide 28 mEq/L (23-29); Chloride 100 mEq/L (98-107); Glucose 174 mg/dL (70-105); Osmolality,Calculated 285 (280-300); Potassium 3.4 mEq/L (3.5-5.1); Sodium 135 mEq/L (136-145); eGFR For African Americans > 60 (> 60); eGFR For Non-African Americans > 60 (> 60)
[2018-10-02] MEDS: Fluticasone Propionate Nasal 50 MCG/SPRAY BOTTLE NS SCH (10:02)
[2018-10-02] MEDS: Artificial Tears SOLN 15 ML BOTTLE BOTH EYES SCH ×3 (10:02→16:31)
[2018-10-02] MEDS: Baclofen 10 MG TABLET PO PRN (12:55)
--- NOTE | 2018-10-02 14:32 | Discharge Summary ---
- NOTES TO OUTPATIENT PROVIDER Notes to Outpatient Provider: Patient had episode of nausea and vomiting which did resolve he felt weak and was given IV fluids-this too resolved-concern for possible CVA CT and MRI are negative. Also check echo which was unremarkable EKG with no ischemic changes. Monitor electrolytes as outpatient Date of Encounter: 10/02/18 Time of Encounter: 14:32 - Discharge Diagnosis (1) Weakness Priority: Primary Status: Acute (2) Nausea & vomiting Priority: Primary Status: Acute Qualifiers: Vomiting type: unspecified Vomiting Intractability: unspecified Qualified Code(s): R11.2 - Nausea with vomiting, unspecified (3) Diarrhea Priority: Secondary Status: Acute Qualifiers: Diarrhea type: unspecified type Qualified Code(s): R19.7 - Diarrhea, unspecified (4) CAD in [place] artery Priority: Secondary Status: Chronic (5) Carotid stenosis, right Priority: Secondary Status: Chronic (6) Diabetes mellitus type 2 in nonobese Priority: Secondary Status: Chronic (7) HLD (hyperlipidemia) Priority: Secondary Status: Chronic Qualifiers: Hyperlipidemia type: unspecified Qualified Code(s): E78.5 - Hyperlipidemia, unspecified (8) HTN (hypertension) Priority: Secondary Status: Chronic Qualifiers: Hypertension type: essential hypertension Qualified Code(s): I10 - Essential (primary) hypertension (9) History of CVA (cerebrovascular accident) Priority: Secondary Status: Chronic Hospital course: Mr. Quinonez is a 73 year old male past medical history of throat cancer status post radical left neck dissection in the 80s CVA with left hemo-plegia right carotid artery stenosed status post stenting hypertension hyperlipidemia history of nonsustained V. tach. Patient was transferred from outside facility with concerns of stroke like symptoms. He had become queasy stomach and felt nauseated with some vomiting episodes he also had some abdominal discomfort after experiencing constipation and taking a laxative. He did have 1 loose b owel movement prior to being transported to the hospital. He denied any headache chest pain shortness of breath dizziness or lightheadedness. During admission patient did not have anymore vomiting or diarrhea he was given IV fluids and electrolytes were replaced. Blood pressure was stable CT of head was negative for anything acute. Obtained MRI which also was negative. Cardiac echo LV EF 60% atypical septal motion consistent with bundle branch block and determine diastolic function right ventricle not well visualized but appears grossly normal valves were not well visualized. EKG with no ischemic changes sinus rhythm with a first-degree block review of telemetry overnight showed occasional PVC orthostatic vitals within normal limits. After receiving IV fluids patient states he felt much better at he is back to his baseline requesting to be discharged he is eating without difficulty. Currently patient is hemodynamically stable at this time is ready for discharge. - Time Spent with Patient Total time spent providing and/or coordinating discharge services: - Discharge Medications Prescriptions: Continued Tramadol HCl [Ultram] 50 mg PO HS PRN PRN Reason: Pain Tamsulosin [Flomax] 0.4 mg PO HS Multivit-Min/FA/Lycopen/Lutein [A Thru Z Select Multivit Tab] 1 tab PO DAILY Meclizine [Antivert] 12.5 mg PO BID PRN PRN Reason: DIZZINESS [place]-3/Dha/Epa/Fish Oil [Fish Oil 1,000 mg Softgel] 2 cap PO BID Clopidogrel [Plavix] 75 mg PO DAILY Benzonatate [Tessalon] 100 mg PO TID Baclofen 40 mg PO TID PRN PRN Reason: MUSCLE SPASMS Atorvastatin [Lipitor] 40 mg PO HS Aspirin [Lo-Dose Aspirin EC] 81 mg PO DAILY Allopurinol [Zyloprim 100 MG] 100 mg PO DAILY Metformin HCl [Glucophage] 500 mg PO BID Metoprolol XL (24 HR) Succ [Toprol Xl] 25 mg PO BID 30 Days #60 tab.er.24h Carboxymethylcellulose Sodium [Restore Plus] 1 drop BOTH EYES QID Cyanocobalamin (Vitamin B-12) [Vitamin B-12] 1,000 mcg PO DAILY Docusate [Colace] 100 mg PO QID Fluticasone Propionate Nasal [Flonase] 2 spr NS DAILY Lisinopril [Zestril] 40 mg PO DAILY Pantoprazole Sodium [Protonix] 20 mg PO DAILY Sertraline [Zoloft] 50 mg PO DAILY Home Medications: Allopurinol [Zyloprim 100 MG] 100 mg PO DAILY 11/10/17 [History] Aspirin [Lo-Dose Aspirin EC] 81 mg PO DAILY 11/10/17 [History] Atorvastatin [Lipitor] 40 mg PO HS 11/10/17 [History] Baclofen 40 mg PO TID PRN 11/10/17 [History] Benzonatate [Tessalon] 100 mg PO TID 11/10/17 [History] Clopidogrel [Plavix] 75 mg PO DAILY 11/10/17 [History] Meclizine [Antivert] 12.5 mg PO BID PRN 11/10/17 [History] Multivit-Min/FA/Lycopen/Lutein [A Thru Z Select Multivit Tab] 1 tab PO DAILY 11/10/17 [History] [place]-3/Dha/Epa/Fish Oil [Fish Oil 1,000 mg Softgel] 2 cap PO BID 11/10/17 [History] Tamsulosin [Flomax] 0.4 mg PO HS 11/10/17 [History] Tramadol HCl [Ultram] 50 mg PO HS PRN 11/10/17 [History] Metformin HCl [Glucophage] 500 mg PO BID 12/26/17 [History] Metoprolol XL (24 HR) Succ [Toprol Xl] 25 mg PO BID 30 Days #60 tab.er.24h 12/27/17 [Rx] Carboxymethylcellulose Sodium [Restore Plus] 1 drop BOTH EYES QID 09/30/18 [History] Cyanocobalamin (Vitamin B-12) [Vitamin B-12] 1,000 mcg PO DAILY 09/30/18 [History] Docusate [Colace] 100 mg PO QID 09/30/18 [History] Fluticasone Propionate Nasal [Flonase] 2 spr NS DAILY 09/30/18 [History] Lisinopril [Zestril] 40 mg PO DAILY 09/30/18 [History] Pantoprazole Sodium [Protonix] 20 mg PO DAILY 09/30/18 [History] Sertraline [Zoloft] 50 mg PO DAILY 09/30/18 [History] Allergies/Adverse Reactions: Allergy/AdvReac Type Severity Reaction Status Date / Time No Known Allergies Allergy Verified 12/26/17 14:06 Date of admission: 09/30/18 19:03 [facility] care physician[facility] Discharg[facility] clinician: Kimberly Winn Anticipated date of discharge: 10/02/18 - Constitutional Vitals: Temp Pulse Resp BP Pulse Ox 97.4 F L 61 16 155/80 94 10/02/18 10:29 10/02/18 10:29 10/02/18 10:29 10/02/18 10:29 10/02/18 10:29 Exam: Skin: Free of rash and discoloration. Eyes: Sclera is white. There is no discharge from eyes. ENMT: Oral/pharyngeal mucosa is normal in appearance. There is no discharge from nose or ears. Respiratory: Normal breath sounds with no crackles and wheezes bilaterally. CV: Heart is regular with no gallop or murmur. GI: Abdomen is flat and soft with no palpable mass or visceromegaly. : There is no tenderness in patient's flanks bilaterally. Neuro exam: He has good strength in upper and lower extremities. He has normal eye movements. Psychiatric: He has normal affect. His thought process is appropriate to the situation. - Patient Status Disposition: Home, Self-Care Condition: Good Functional capacity at discharge: wheelchair bound Overall status at discharge: patient is back to baseline - Discharge Instructions Follow Up With: [facility] [Primary Care Provider] - - Diet and Activity Activity: increase activity as tolerated Diet: advance to your usual diet
[2018-10-02 15:19] VITALS: BP 169/86
== END 2018-10-02 17:51 | disposition home or self-care (01) ==
LOC: 3BNU
PROVIDERS: ADMIT Internal Medicine Nephrology; ATTEND Internal Medicine Nephrology

== ENCOUNTER 2019-05-19 20:43 | Observation (INO) ==
[2019-05-19 21:15] LABS: Basophils # 0.1 K/mcL (0.0-0.2); Basophils % 0.5 %; Eosinophils # 0.2 K/mcL (0.0-0.6); Eosinophils % 2.3 %; Hematocrit 39.2 % (37.5-50.1); Hemoglobin 13.7 g/dL (12.9-16.9); Immature Granulocytes % 0.3 % (0-4); Lymphocytes # 0.7 K/mcL (0.6-4.6); Mean Corpuscular HGB Conc 34.9 g/dL (31.6-35.5); Mean Corpuscular Hemoglobin 28.8 pg (28.0-33.3); Mean Corpuscular Volume 82.5 fL (83.0-100.0); Mean Platelet Volume 9.1 fL (9.4-12.4); Monocytes # 0.6 K/mcL (0.0-1.3); Monocytes % 6.3 %; Neutrophils # 8.3 K/mcL (1.6-8.9); Platelet Count 147 K/mcL (140-400); Red Blood Count 4.75 M/mcL (4.19-5.50); Red Cell Distribution Width 13.9 % (11.5-14.5); Segmented Neutrophils % 83.6 %; White Blood Count 9.9 K/mcL (4.3-11.1)
[2019-05-19 21:19] LABS: Prothrombin Time 11.3 Seconds (9.4-12.1)
[2019-05-19 21:21] LABS: Activated Partial Thrombo Time 40.3 Seconds (26.0-36.0)
[2019-05-19 22:06] LABS: Bilirubin,Urine Negative (Negative); Blood,Urine Negative (Negative); Clarity,Urine Clear (Clear); Color,Urine Yellow (Yellow); Glucose,Urine (UA) Normal (Normal); Ketones,Urine Negative (Negative); Leukocyte Esterase,Urine Negative (Negative); Nitrite,Urine Negative (Negative); Protein,Urine 100 mg/dL (Neg-Trace); Urobilinogen,Urine Normal (Normal)
[2019-05-19 22:09] LABS: Bacteria,Urine None Seen per hpf (None-Few); Hyaline Casts,Urine None Seen per lpf (None-Few); Squamous Epithelial Cell,Urine Many per lpf (None-Few); WBC,Urine 0-3 per hpf (0-3)
[2019-05-19 22:52] LABS: Alanine Aminotransferase 14 Units/L (7-52); Albumin 4.4 g/dL (3.5-5.7); Albumin/Globulin Ratio 1.4 (1.1-2.2); Alkaline Phosphatase 61 Units/L (34-104); Aspartate Amino Transferase 13 Units/L (13-39); BUN/Creatinine Ratio 19 (6-26); Bilirubin,Total 0.8 mg/dL (0.3-1.0); Blood Urea Nitrogen 14 mg/dL (8-23); Calcium 10.1 mg/dL (8.6-10.3); Carbon Dioxide 24 mEq/L (23-29); Chloride 101 mEq/L (98-107); Globulin 3.1 g/dL (2.4-3.5); Glucose 146 mg/dL (70-105); Osmolality,Calculated 287 (280-300); Potassium 4.3 mEq/L (3.5-5.1); Sodium 137 mEq/L (136-145); Total Protein 7.5 g/dL (6.4-8.9); Troponin I < 0.03 ng/mL (< 0.04); eGFR For African Americans > 60 (> 60); eGFR For Non-African Americans > 60 (> 60)
[2019-05-20] MEDS ORDERED: Acetaminophen 325 MG TABLET PO PRN (00:10)
[2019-05-20] MEDS ORDERED: Naloxone 0.4 MG/ML INJ IVP PRN (00:10)
[2019-05-20] MEDS ORDERED: Ondansetron ODT 4 MG TAB.RAPDIS SL PRN (00:10)
[2019-05-20] MEDS ORDERED: 0.9 % Sodium Chloride 1,000 ML IVC SCH (00:15)
[2019-05-20] MEDS ORDERED: Benzonatate 100 MG CAPSULE PO PRN (02:14)
[2019-05-20] MEDS ORDERED: Baclofen 10 MG TABLET PO PRN (02:14)
[2019-05-20 04:06] VITALS: BP 151/75
[2019-05-20 04:37] LABS: Basophils # 0.1 K/mcL (0.0-0.2); Basophils % 0.7 %; Eosinophils # 0.3 K/mcL (0.0-0.6); Eosinophils % 3.7 %; Hematocrit 35.4 % (37.5-50.1); Hemoglobin 12.3 g/dL (12.9-16.9); Immature Granulocytes % 0.2 % (0-4); Lymphocytes # 1.4 K/mcL (0.6-4.6); Mean Corpuscular HGB Conc 34.7 g/dL (31.6-35.5); Mean Corpuscular Hemoglobin 30.1 pg (28.0-33.3); Mean Corpuscular Volume 86.8 fL (83.0-100.0); Mean Platelet Volume 9.8 fL (9.4-12.4); Monocytes # 0.7 K/mcL (0.0-1.3); Monocytes % 7.7 %; Neutrophils # 6.4 K/mcL (1.6-8.9); Platelet Count 161 K/mcL (140-400); Red Blood Count 4.08 M/mcL (4.19-5.50); Red Cell Distribution Width 13.9 % (11.5-14.5); Segmented Neutrophils % 71.7 %; White Blood Count 8.9 K/mcL (4.3-11.1)
[2019-05-20 04:46] LABS: INR 1.1; Prothrombin Time 12.1 Seconds (9.4-12.1)
[2019-05-20 05:04] LABS: Alanine Aminotransferase 11 Units/L (7-52); Albumin 3.9 g/dL (3.5-5.7); Albumin/Globulin Ratio 1.5 (1.1-2.2); Alkaline Phosphatase 54 Units/L (34-104); Aspartate Amino Transferase 11 Units/L (13-39); BUN/Creatinine Ratio 21 (6-26); Bilirubin,Total 0.9 mg/dL (0.3-1.0); Blood Urea Nitrogen 15 mg/dL (8-23); Calcium 9.5 mg/dL (8.6-10.3); Carbon Dioxide 25 mEq/L (23-29); Chloride 104 mEq/L (98-107); Cholesterol 100 mg/dL (< 200); Globulin 2.6 g/dL (2.4-3.5); Glucose 115 mg/dL (70-105); HDL Cholesterol 25 mg/dL (40-59); LDL Cholesterol,Calculated 24 mg/dL (0-99); Magnesium 1.7 mg/dL (1.6-2.6); Osmolality,Calculated 286 (280-300); Phosphorous 3.2 mg/dL (2.7-4.5); Potassium 3.7 mEq/L (3.5-5.1); Sodium 137 mEq/L (136-145); Total Protein 6.5 g/dL (6.4-8.9); Triglycerides 253 mg/dL (< 150); eGFR For African Americans > 60 (> 60); eGFR For Non-African Americans > 60 (> 60)
[2019-05-20 05:12] LABS: Thyroid Stimulating Hormone 3.244 mcIU/mL (0.340-5.600)
[2019-05-20] MEDS ORDERED: Perflutren Lipid Microsphere 1.3 ML in 0.9 % Sodium Chloride 8.7 ML IVP ONE (08:22)
[2019-05-20] MEDS ORDERED: Isovue-370 500 ML BOTTLE IVP ONE (08:32)
[2019-05-20] MEDS ORDERED: Aspirin Enteric Coated 81 MG Tablet PO SCH (09:00)
[2019-05-20 10:03] LABS: Estimated Average Glucose 128 mg/dl
[2019-05-20] MEDS ORDERED: tiZANidine 4 MG TABLET PO SCH (21:00)
== END 2019-05-20 14:17 | disposition home health service (06) ==
LOC: 3BNU 20:43 → EMEROOARM 20:43 → 3BNU 23:33 → SUATTDRO 05-20 00:11
PROVIDERS: ADMIT Family Medicine; ATTEND Internal Medicine